=== PATIENT | female | born 1990 | race Caucasian/White ===

== ENCOUNTER 2021-06-28 12:24 | Inpatient (IN) | payer OTHER, SELFPAY ==
[2021-06-28] VITALS (9 sets, daily range): BP systolic 88–119; BP diastolic 45–75; PULSE 86–116; RESP 14–24; TEMP 36.6–38.7; O2SAT 95–100; BMI 21.9
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
[2021-06-28] MEDS: Ibuprofen 800 MG TABLET PO (13:32)
[2021-06-28 14:05] LABS: MANUAL DIFF FLAG NO
[2021-06-28 14:08] LABS: Basophils Percent Auto 0.3 % (0-2); Eosinophils Percent Auto 0.3 % (0-4); Hematocrit 31.4 % (37-47); Hemoglobin 10.2 g/dl (12.0-16.0); Imm Gran Abs Auto 0.04 X10*3/uL (0.00-0.03); Imm Gran Pct Auto 0.3 % (0.0-0.4); Lymphocytes Absolute Auto 1.5 X10*3/uL (1.2-4.9); Lymphocytes Percent Auto 12.4 % (20-40); Mean Corpuscular HGB Conc 32.5 g/dl (31.0-35.0); Mean Corpuscular Hemoglobin 23.3 pg (27.0-33.0); Mean Corpuscular Volume 71.9 fL (80-98); Mean Platelet Volume 9.3 fL (9.4-12.3); Neutrophils Absolute Auto 9.4 X10*3/uL (2.0-8.3); Neutrophils Percent Auto 78.7 % (45-73); Platelet Count 359 X10*3/uL (160-400); Red Blood Count 4.37 X10*6/uL (4.20-5.50); Red Cell Distribution Width 16.7 % (11.0-16.0); White Blood Count 11.9 X10*3/uL (4.8-10.8)
[2021-06-28 14:17] LABS: INTERNATIONAL NORM RATIO 1.2 (0.9-1.1); Prothrombin Time 13.9 SEC (9.9-13.0)
[2021-06-28 14:30] LABS: Lactic Acid 1.6 mmol/L (0.5-2.0)
[2021-06-28 14:33] LABS: Alanine Aminotransferase 56 U/L (0-31); Albumin Level 3.6 g/dL (3.5-5.0); Alkaline Phosphatase 153 U/L (39-117); Anion Gap 16 (12-20); Aspartate Amino Transferase 49 U/L (5-31); Bilirubin Total 0.5 mg/dL (0.0-1.0); Blood Urea Nitrogen 9 mg/dL (9-16); Calcium 8.9 mg/dL (8.4-10.2); Carbon Dioxide 21 mmol/L (22-29); Chloride 99 mmol/L (96-108); Creatinine Clr Calc Pharmacy 80.8; Estimated Glomerular Filt Rate > 60; Glucose Random 127 mg/dL (60-115); Magnesium 1.7 mg/dL (1.6-2.6); Potassium 3.7 mmol/L (3.3-5.1); Sodium 132 mmol/L (135-145)
[2021-06-28 14:38] LABS: B Type Natriuretic Peptide 63 pg/mL (<100)
[2021-06-28] MEDS: Piperacillin Sodium/Tazobactam 3.375 GM in 0.9 % Sodium Chloride 50 ML IV (15:12)
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
[2021-06-28 16:50] LABS: Glucose Urine UA NEG (NEG); Leukocyte Esterase Urine 1+ (NEG); Nitrite Urine NEG (NEG); Specific Gravity - Urine <= 1.005 (1.005-1.025); UACC Culture Trigger YES; Urine Blood NEG (NEG); Urine Ketones NEG (NEG); Urine Protein NEG (NEG-TRACE)
[2021-06-28 16:54] LABS: Color Urine STRAW
--- NOTE | 2021-06-28 16:54 | PC.NURSE ---
Difficulty in finding IV line at this time. MD at bedside with ultrasound
[2021-06-28 16:55] LABS: Appearance Urine CLEAR
[2021-06-28 16:57] LABS: UPreg QC Valid YES; Urine Pregnancy NEGATIVE (NEGATIVE)
[2021-06-28 17:14] LABS: Bacteria Urine 1+ /LPF; RBC Urine 0 /HPF (0); Renal Epithelial Cells Urine TRACE /LPF; Squamous Epithelial Cell Urine 1+ /LPF
[2021-06-28 17:15] LABS: Uric Acid Crystals Urine TRACE /LPF
--- NOTE | 2021-06-28 17:19 | PC.NURSE ---
Pt was stating that she wanted to leave AMA. Pt noticed tp have left room and was found again in waiting room. Unsure if she left the building. She agreed to go back to her room. At that time IV was placed via ultrasound by physician. IV abx given and pt is awaiting CT scan at this time.
[2021-06-28] MEDS: iohexoL 350 MG/ML 100 ML INFUS..BTL IV (18:20)
[2021-06-28] MEDS: vancomycin HCL 1,000 MG in 0.9 % Sodium Chloride 250 ML 270 MG IV (18:35)
--- NOTE | 2021-06-28 19:46 | PC.NURSE ---
Dr. Rapp to bedside, drained approx 120cc of sanguinous drainage from wound on left upper leg. surrounding swelling and erythema. dressing change and jerrod bandage applied by Dr. Rapp. Photo of wound taken with patients consent.
[2021-06-28 20:30] LABS: COVID-19 Test Negative (Negative)
[2021-06-28] MEDS: Acetaminophen 325 MG TABLET 650 MG PO (22:37)
[2021-06-28] MEDS: LORazepam 2 MG/ML VIAL 1 MG IVPUSH (22:37)
[2021-06-29] VITALS (14 sets, daily range): BP systolic 88–125; BP diastolic 42–70; PULSE 62–123; RESP 15–20; TEMP 36.1–38.7; O2SAT 96–100; BMI 22.8
--- NOTE | 2021-06-29 | ECG_ITS ---
Test Reason : METHADONE INITIATION Blood Pressure : / mmHG Vent. Rate : 101 BPM Atrial Rate : 101 BPM P-R Int : 116 ms QRS Dur : 078 ms QT Int : 356 ms P-R-T Axes : 026 067 027 degrees QTc Int : 461 ms Sinus tachycardia Otherwise normal ECG No previous ECGs available Referred By: La Nuñez Electronically Signed By:Keith Delgado
[2021-06-29] MEDS: Gabapentin 400 MG CAPSULE 800 MG PO ×4 (00:03→20:58)
[2021-06-29] MEDS: cefEPime HCl 1 GM in 0.9 % Sodium Chloride 50 ML IV ×3 (00:04→23:32)
[2021-06-29] MEDS: Heparin Sodium,Porcine 5,000 UNIT/ML VIAL 5000 UNIT SUBCUT ×2 (00:04→23:32)
[2021-06-29] MEDS: traZODone HCL 50 MG TABLET 150 MG PO ×2 (00:04→20:58)
[2021-06-29] MEDS: 0.9 % Sodium Chloride Flush 3 ML SYRINGE IVFLUSH ×4 (00:35→23:33)
[2021-06-29] MEDS: Morphine Sulfate 4 MG/ML CARTRIDGE IVPUSH ×4 (00:35→19:43)
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
[2021-06-29 05:38] LABS: MANUAL DIFF FLAG NO
[2021-06-29 05:44] LABS: Basophils Percent Auto 0.3 % (0-2); Eosinophils Percent Auto 0.2 % (0-4); Hematocrit 29.4 % (37-47); Hemoglobin 9.5 g/dl (12.0-16.0); Imm Gran Abs Auto 0.05 X10*3/uL (0.00-0.03); Imm Gran Pct Auto 0.4 % (0.0-0.4); Lymphocytes Absolute Auto 1.5 X10*3/uL (1.2-4.9); Lymphocytes Percent Auto 11.8 % (20-40); Mean Corpuscular HGB Conc 32.3 g/dl (31.0-35.0); Mean Corpuscular Hemoglobin 23.2 pg (27.0-33.0); Mean Corpuscular Volume 71.7 fL (80-98); Mean Platelet Volume 9.8 fL (9.4-12.3); Monocytes Absolute Auto 1.1 X10*3/uL (0.1-1.2); Monocytes Percent Auto 8.7 % (2-11); Neutrophils Absolute Auto 10.2 X10*3/uL (2.0-8.3); Neutrophils Percent Auto 78.6 % (45-73); Platelet Count 383 X10*3/uL (160-400); Red Cell Distribution Width 16.7 % (11.0-16.0); White Blood Count 12.9 X10*3/uL (4.8-10.8)
[2021-06-29 06:07] LABS: Anion Gap 14 (12-20); Blood Urea Nitrogen 7 mg/dL (9-16); Calcium 8.5 mg/dL (8.4-10.2); Carbon Dioxide 21 mmol/L (22-29); Chloride 102 mmol/L (96-108); Creatinine Clr Calc Pharmacy 81.9; Estimated Glomerular Filt Rate > 60; Glucose Random 122 mg/dL (60-115); Potassium 3.7 mmol/L (3.3-5.1); Sodium 133 mmol/L (135-145)
[2021-06-29] MEDS: vancomycin HCL 1,000 MG in 0.9 % Sodium Chloride 250 ML 270 MG IV ×2 (06:27→19:43)
[2021-06-29] MEDS: cloNIDine HCL 0.1 MG TABLET 0.05 MG PO (06:28)
--- NOTE | 2021-06-29 08:16 | PHA.MEDREC ---
Pharmacy Consult ? Medication Reconciliation Pharmacy has completed the medication reconciliation.
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
--- NOTE | 2021-06-29 08:51 | MHC.CM.PN ---
PATIENT NOT PARTICIPATING IN ASSESSMENT ATTEMPTS. STATES THAT SHE IS BURNING UP AND NEEDS WATER PER [employer]ITE [employer]ARD, PATIENT IS CURRENTLY NPO. CASE MANAGEMENT TO RETURN AT A MORE APPROPRIATE TIME.
[2021-06-29] MEDS: Nicotine 21 MG PATCH.TD24 TRANSDERMA (09:09)
[2021-06-29] MEDS: Amphetamine Mixed Salts 10 MG TABLET 30 MG PO ×3 (09:10→17:12)
[2021-06-29] MEDS: Escitalopram Oxalate 10 MG TABLET PO (09:10)
[2021-06-29] MEDS: hydrOXYzine HCL 25 MG TABLET PO (09:10)
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
--- NOTE | 2021-06-29 11:14 | HO.ANESPROP2 ---
HPI - Anesthesia Eval Consult details Narrative: 30 yo female patient for I&D of left knee PMFSH Active Problems Active Problems: All Active Problems (Updated 06/29/21 @ 08:48 by Lili Carpenter PA-C) Cellulitis of left thigh (Acute) UTI (urinary tract infection) (Acute) Sepsis (Acute) Infected wound (Acute) Traumatic seroma of left thigh (Acute) Past Medical History Medical History (Updated 06/29/21 @ 08:48 by Lili Carpenter PA-C) Hepatitis C IV drug abuse Tobacco use disorder Family History Family history of problems with anesthesia: No Surgical History History of Problems with Anesthesia: No Social History Social History Household Members: Significant Other Housing: House Do you presently have visiting nurse or other home services: No Patient Tobacco Use Status: Current everyday Tobacco user Tobacco use type: Cigarette Years Smoked: 5 Smoked in Last 30 Days: Yes Patient Interested in Nicotine Replacement: Yes Patient Given Instructions on How to Stop Smoking: No Second Hand Smoke Exposure: Yes Use of substances other than those prescribed or required for medical reasons: Yes Substance Use Type: Crack/Cocaine and Heroin Substance Use Frequency: Chronic Longstanding Last Used Substance: Hours (ago) Currently Displaying Signs/Symptoms of Drug Intoxication Withdrawal: No Any prior treatment program specific to substance use: Yes Have you been hit, kicked, punched, or otherwise hurt by someone within the past year? If so, by whom?: No Do you feel safe in your current relationship?: Yes Is there a partner from a previous relationship who is making you feel unsafe now?: No Are you made to feel afraid or neglected: No Are you DNR?: No Advance Directives: No Advance Directives Information Provided: No Advance Directives on File: No Do you have thoughts of harming others: None Do you have a plan to hurt others: No Plan Recently lost weight without trying: No Nutrition Risks: No Nutritional Risk Patient : No : No Poor oral hygiene: No service: No Current occupational status: unemployed Meds Allergies Allergy/AdvReac Type Severity Reaction Status Date / Time Penicillins [PENICILLINS] Allergy Intermediate UNKNOWN Verified 06/29/21 10:27 Sulfa (Sulfonamide Allergy Intermediate UNKNOWN Verified 06/29/21 10:27 Antibiotics) [SULFA (SULFONAMIDE ANTIBIOTICS)] Active Medications: Current Medications Generic Name Dose Route Start Last Admin Trade Name Jorgeq PRN Reason Stop Dose Admin Acetaminophen 650 mg 06/28/21 22:06 06/28/21 22:37 Acetaminophen 325 Mg Tablet PO 650 mg Q6H PRN Administration Pain, Mild (Pain Scale 1-3) Amphetamine/Dextroamphetamine 30 mg 06/29/21 08:00 06/29/21 09:10 Amphetamine Mixed Salts 10 Mg Tablet PO 30 mg TIDWM KYLIE Administration Clonidine HCl 0.05 mg 06/28/21 22:06 06/29/21 06:28 Clonidine Hcl 0.1 Mg Tablet PO 0.05 mg TID PRN Administration withdrawal symptoms Protocol Docusate Sodium 100 mg 06/28/21 22:06 Docusate Sodium 100 Mg Capsule PO DAILY PRN Constipation Escitalopram Oxalate 10 mg 06/29/21 09:00 06/29/21 09:10 Escitalopram Oxalate 10 Mg Tablet PO 10 mg DAILY KYLIE Administration Gabapentin 800 mg 06/28/21 22:06 06/29/21 09:10 Gabapentin 400 Mg Capsule PO 800 mg TID KYLIE Administration Heparin Sodium (Porcine) 5,000 unit 06/28/21 23:00 06/29/21 00:04 Heparin Sodium,Porcine 5,000 Unit/Ml Vial SUBCUT 5,000 unit Q12H KYLIE Administration Hydroxyzine HCl 25 mg 06/28/21 22:06 06/29/21 09:10 Hydroxyzine Hcl 25 Mg Tablet PO 25 mg Q6H PRN Administration anxiety Vancomycin HCl 1,000 mg/ 270 mls @ 270 mls/hr 06/29/21 07:00 06/29/21 08:19 Sodium Chloride IV Infused Q12H [facility] Infusion Cefepime HCl 1 gm/ Sodium 50 mls @ 100 mls/hr 06/29/21 00:00 06/29/21 10:33 Chloride IV Not Given Q8H KYLIE Lactated Ringer's 1,000 mls @ 100 mls/hr 06/29/21 11:15 Lr IVCONT .Q10H KYLIE Lorazepam 0.5 mg 06/29/21 09:00 Lorazepam 2 Mg/Ml Vial IVPUSH Q6H PRN Anxiety Morphine Sulfate 4 mg 06/28/21 23:45 06/29/21 06:28 Morphine Sulfate 4 Mg/Ml Cartridge IVPUSH 4 mg Q4H PRN Administration Pain, Severe (Pain Scale 7-10) Nicotine 21 mg 06/29/21 09:00 06/29/21 09:09 Nicotine 21 Mg Patch.Td24 TRANSDERMA 21 mg DAILY KYLIE Administration Ondansetron HCl 4 mg 06/28/21 22:06 Ondansetron Hcl 4 Mg/2 Ml Vial IVPUSH Q8H PRN Nausea and Vomiting Pharmacy Consult 1 each 06/28/21 22:06 Consult Rx Vancomycin Dosing MISCELLANE DAILY PRN Consult order Sodium Chloride 3 ml 06/29/21 00:00 06/29/21 09:10 0.9 % Sodium Chloride Flush 3 Ml Syringe IVFLUSH 3 ml QSHIFT KYLIE Administration Trazodone HCl 150 mg 06/28/21 22:06 06/29/21 00:04 Trazodone Hcl 50 Mg Tablet PO 150 mg BEDTIME KYLIE Administration Home Medications Medication Instructions Recorded Confirmed Last Taken Type dextroamphetamine-amphetamine 30 1 tab PO TID@08,12,15 06/28/21 06/29/21 06/24/21 History mg tablet escitalopram oxalate 10 mg tablet 1 tab PO DAILY 06/28/21 06/28/21 06/24/21 History gabapentin 800 mg tablet 1 tab PO TID 06/28/21 06/28/21 06/24/21 History trazodone 150 mg tablet 1 tab PO BEDTIME 06/28/21 06/28/21 06/24/21 History Exam Exam Date and Time: June 29, 2021 1114 Height,Weight and Vital Signs: Height 5 ft 2 in Weight 56.699 kg Last Vital Signs Temp 99.5 F 06/29/21 10:31 Pulse 123 H 06/29/21 10:31 Resp 16 06/29/21 10:31 BP 125/70 06/29/21 10:31 Pulse Ox 99 06/29/21 10:31 Pertinent Lab Results Pertinent Lab Results: Laboratory Tests 06/28/21 06/28/21 06/28/21 13:57 13:57 13:57 WBC 11.9 H RBC 4.37 Hgb 10.2 L Hct 31.4 L MCV 71.9 L MCH 23.3 L MCHC 32.5 RDW 16.7 H Plt Count 359 MPV 9.3 L Immature Gran % (Auto) 0.3 Neut % (Auto) 78.7 H Lymph % (Auto) 12.4 L Boundary % (Auto) 8.0 Eos % (Auto) 0.3 Baso % (Auto) 0.3 Lymph # (Auto) 1.5 Boundary # (Auto) 1.0 Eos # (Auto) 0.0 Baso # (Auto) 0.0 Abs Immat Gran (auto) 0.04 H Absolute Neuts (auto) 9.4 H Absolute Nucleated RBC 0.000 Nucleated RBC % (auto) 0.0 Hold Purple Top SEE NOTE PT 13.9 H INR 1.2 H Sodium Potassium Chloride Carbon Dioxide Anion Gap BUN Creatinine Estim Creat Clear Calc Estimated GFR Random Glucose Lactic Acid Calcium Magnesium Total Bilirubin AST ALT Alkaline Phosphatase B-Natriuretic Peptide Total Protein Albumin Urine Color Urine Appearance Urine pH Ur Specific [place] Urine Protein Urine Glucose (UA) Urine Ketones Urine Blood Urine Nitrite Ur Leukocyte Esterase Urine RBC Urine WBC Ur Squamous Epith Cells Ur Renal Epithelial Cell Uric Acid Crystals Urine Bacteria Urine Test COVID-19 (CAROL ANN) COVID-19 [employer] 06/28/21 06/28/21 06/28/21 13:57 13:57 13:57 WBC RBC Hgb Hct MCV MCH MCHC RDW Plt Count MPV Immature Gran % (Auto) Neut % (Auto) Lymph % (Auto) Boundary % (Auto) Eos % (Auto) Baso % (Auto) Lymph # (Auto) Boundary # (Auto) Eos # (Auto) Baso # (Auto) Abs Immat Gran (auto) Absolute Neuts (auto) Absolute Nucleated RBC Nucleated RBC % (auto) Hold Purple Top PT INR Sodium 132 L Potassium 3.7 Chloride 99 Carbon Dioxide 21 L Anion Gap 16 BUN 9 Creatinine 0.79 Estim Creat Clear Calc 80.8 Estimated GFR > 60 Random Glucose 127 H Lactic Acid 1.6 Calcium 8.9 Magnesium 1.7 Total Bilirubin 0.5 AST 49 H ALT 56 H Alkaline Phosphatase 153 H B-Natriuretic Peptide 63 Total Protein 7.0 Albumin 3.6 Urine Color Urine Appearance Urine pH Ur Specific [place] Urine Protein Urine Glucose (UA) Urine Ketones Urine Blood Urine Nitrite Ur Leukocyte Esterase Urine RBC Urine WBC Ur Squamous Epith Cells Ur Renal Epithelial Cell Uric Acid Crystals Urine Bacteria Urine Test COVID-19 (CAROL ANN) COVID-19 [employer] 06/28/21 06/28/21 06/28/21 16:38 16:38 20:02 WBC RBC Hgb Hct MCV MCH MCHC RDW Plt Count MPV Immature Gran % (Auto) Neut % (Auto) Lymph % (Auto) Boundary % (Auto) Eos % (Auto) Baso % (Auto) Lymph # (Auto) Boundary # (Auto) Eos # (Auto) Baso # (Auto) Abs Immat Gran (auto) Absolute Neuts (auto) Absolute Nucleated RBC Nucleated RBC % (auto) Hold Purple Top PT INR Sodium Potassium Chloride Carbon Dioxide Anion Gap BUN Creatinine Estim Creat Clear Calc Estimated GFR Random Glucose Lactic Acid Calcium Magnesium Total Bilirubin AST ALT Alkaline Phosphatase B-Natriuretic Peptide Total Protein Albumin Urine Color STRAW Urine Appearance CLEAR Urine pH 6.0 Ur Specific [place] <= 1.005 Urine Protein NEG Urine Glucose (UA) NEG Urine Ketones NEG Urine Blood NEG Urine Nitrite NEG Ur Leukocyte Esterase 1+ H Urine RBC 0 Urine WBC 10-14 H Ur Squamous Epith Cells 1+ Ur Renal Epithelial Cell TRACE Uric Acid Crystals TRACE Urine Bacteria 1+ Urine Test NEGATIVE COVID-19 (CAROL ANN) Negative COVID-19 Clin Com See Note 06/29/21 06/29/21 05:33 05:33 WBC 12.9 H RBC 4.10 L Hgb 9.5 L Hct 29.4 L MCV 71.7 L MCH 23.2 L MCHC 32.3 RDW 16.7 H Plt Count 383 MPV 9.8 Immature Gran % (Auto) 0.4 Neut % (Auto) 78.6 H Lymph % (Auto) 11.8 L Boundary % (Auto) 8.7 Eos % (Auto) 0.2 Baso % (Auto) 0.3 Lymph # (Auto) 1.5 Boundary # (Auto) 1.1 Eos # (Auto) 0.0 Baso # (Auto) 0.0 Abs Immat Gran (auto) 0.05 H Absolute Neuts (auto) 10.2 H Absolute Nucleated RBC 0.000 Nucleated RBC % (auto) 0.0 Hold Purple Top PT INR Sodium 133 L Potassium 3.7 Chloride 102 Carbon Dioxide 21 L Anion Gap 14 BUN 7 L Creatinine 0.78 Estim Creat Clear Calc 81.9 Estimated GFR > 60 Random Glucose 122 H Lactic Acid Calcium 8.5 Magnesium Total Bilirubin AST ALT Alkaline Phosphatase B-Natriuretic Peptide Total Protein Albumin Urine Color Urine Appearance Urine pH Ur Specific [place] Urine Protein Urine Glucose (UA) Urine Ketones Urine Blood Urine Nitrite Ur Leukocyte Esterase Urine RBC Urine WBC Ur Squamous Epith Cells Ur Renal Epithelial Cell Uric Acid Crystals Urine Bacteria Urine Test COVID-19 (CAROL ANN) COVID-19 Clin Com Airway Mallampati Class: II TM Dist: >3cm Neck ROM: Full Loose/Missing/Broken Teeth: Yes (Broken back) Heart: RRR Lungs: CTAB Assessment and Plan Assessment Anesthesia Assessment: Anesthesia Plan Discussed and Chart Reviewed Final Anesthetic Review Family History of Problems with Anesthesia: No History of Problems with Anesthesia: No NPO: No (5 hours ago 16oz cranberry juice) ASA Class: III Final Preanesthetic Review: No Changes in Pt Med Stat, Meds/Allgs Chart Reviewed, Consent Obtained/Reviewed and Anes Risks/Benef Reviewed Patient Risk: Intermediate Procedure Risk: Low Assessment/Block/Sedation in SS: Assess/Block/Sedation-SS Anesthetic Plan Anesthetic Plan: GA Disposition: Standard PACU and Inp. Admit - Standard Bed
--- NOTE | 2021-06-29 11:31 | MHC.SHP ---
Pre-Procedural Eval Section A Date of Service: 06/29/21 The patient is an INPATIENT: Yes Section B Chief Complaint: cellulitis, seroma Allergies: Allergies Allergy/AdvReac Type Severity Reaction Status Date / Time Penicillins [PENICILLINS] Allergy Intermediate UNKNOWN Verified 06/29/21 10:27 Sulfa (Sulfonamide Allergy Intermediate UNKNOWN Verified 06/29/21 10:27 Antibiotics) [SULFA (SULFONAMIDE ANTIBIOTICS)] Plan Diagnosis/Plan: Unchanged I have reviewed the history and physical and performed a pertinent physical examination on my patient. No changes have occurred unless specified.
--- NOTE | 2021-06-29 11:49 | MHC.CM.PN ---
PATIENT SCHEDULED FOR DRAIN TO DAY IN O.R.
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
[2021-06-29] MEDS: Lactated Ringers 1,000 ML 100 ML IVCONT ×2 (12:01→17:13)
--- NOTE | 2021-06-29 12:01 | PC.NURSE ---
Nicotine Patch removed from left upper arm in pre op room, per anesthesia.
--- NOTE | 2021-06-29 12:03 | PC.NURSE ---
Dr. Tellez aware that patient drank two 8oz cups of cranberry juice at 0700. Okay to proceed with surgery.
--- NOTE | 2021-06-29 12:04 | PC.NURSE ---
Per Dr. Pagan, no pre op antibiotics.
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
[2021-06-29] MEDS: LORazepam 2 MG/ML VIAL 0.5 MG IVPUSH ×2 (13:23→19:42)
--- NOTE | 2021-06-29 15:47 | PC.NURSE ---
Skin assessment completed today. On admission patient had some slight redness to her left inner thigh from cellulitis. Today I see no redness and skin looks great. No other skin issues noted.
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
--- NOTE | 2021-06-29 17:41 | PC.NURSE ---
pt reported increased drainage from L thigh wound. Dsg placed in surgery today fully saturated w/ serosaing drainage. pt denied increase in pain. no increase in swelling or erythema noted. took down saturated dsg. cleansed site. periwound pink and intact, wound with [address] absorbent gauze dsg applied with abd pain covering and guaze wrap covering. pt advised to report increase drainage, any s/sx of increased pain/ swelling. will cont to monitor and assess.
[2021-06-30] VITALS (7 sets, daily range): BP systolic 96–135; BP diastolic 58–75; PULSE 70–98; RESP 16–20; TEMP 36.2–37; O2SAT 96–99
[2021-06-30] MEDS: Lactated Ringers 1,000 ML 100 ML IVCONT ×2 (05:52→18:18)
[2021-06-30] MEDS: vancomycin HCL 1,000 MG in 0.9 % Sodium Chloride 250 ML 270 MG IV (05:53)
[2021-06-30] MEDS: Morphine Sulfate 4 MG/ML CARTRIDGE IVPUSH ×2 (06:00→12:22)
[2021-06-30 06:36] LABS: Vancomycin Trough 5.3 mcg/mL (10.0-20.0)
[2021-06-30] MEDS: cefTRIAXone sodium 1 GM in 0.9 % Sodium Chloride 50 ML IV (07:51)
[2021-06-30] MEDS: Amphetamine Mixed Salts 10 MG TABLET 30 MG PO ×3 (07:53→17:05)
[2021-06-30] MEDS: Gabapentin 400 MG CAPSULE 800 MG PO ×3 (07:54→20:56)
[2021-06-30] MEDS: Nicotine 21 MG PATCH.TD24 TRANSDERMA (07:54)
[2021-06-30] MEDS: Escitalopram Oxalate 10 MG TABLET PO (07:54)
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
[2021-06-30] MEDS: LORazepam 2 MG/ML VIAL 0.5 MG IVPUSH (09:07)
[2021-06-30] MEDS: Nicotine Polacrilex 2 MG GUM BUCCAL ×4 (09:07→15:34)
[2021-06-30] MEDS: Acetaminophen 325 MG TABLET 650 MG PO ×2 (10:39→22:07)
[2021-06-30] MEDS: Ibuprofen 600 MG TABLET PO ×2 (10:40→22:07)
--- NOTE | 2021-06-30 10:45 | HO.PM.IMPN ---
Subjective Subjective Date of Service: 06/30/21 Interval History: F/u on open wound of left upper thigh, opioid withdrawal Review of Systems Gen: no fever Resp: no sob, no cough CV: no chest, no QUIJANO, no leg edema GI: No n/v, no abd pain Neuro: No confusion, anxious, Physical Exam Vital Signs: Vital Signs: Last Vital Signs Temp 98.1 F 06/30/21 07:35 Pulse 70 06/30/21 07:35 Resp 18 06/30/21 07:35 BP 96/58 L 06/30/21 07:35 Pulse Ox 98 06/30/21 07:35 Body Mass Index 22.8 Const: General: comfortable Orientation/consciousness: patient oriented x3 Resp: Effort & Inspection: normal respiratory effort and able to speak in complete sentences Auscultation: clear to auscultation bilaterally Cardio: Rate: regular rate Rhythm: regular rhythm Heart sounds: no murmurs GI: Palpation (GI): nontender Neuro: General: patient oriented x3 Extrem: Other: LLE- wound of medial thigh remains clean- no further necrosis noted, some fibrinous exudate, granulation tissue of distal aspect, sury drain remains in subq space, serous drainage noted on dressing, surrounding erythema improved, induration persists, no fluid collection noted General: Yes no pedal edema Objective Data Current Medications Generic Name Dose Route Start Last Admin Trade Name Jorgeq PRN Reason Stop Dose Admin Acetaminophen 650 mg 06/28/21 22:06 06/30/21 10:39 Acetaminophen 325 Mg Tablet PO 650 mg Q6H PRN Administration Pain, Mild (Pain Scale 1-3) Amphetamine/Dextroamphetamine 30 mg 06/29/21 08:00 06/30/21 07:53 Amphetamine Mixed Salts 10 Mg Tablet PO 30 mg TIDWM KYLIE Administration Clonidine HCl 0.05 mg 06/28/21 22:06 06/29/21 06:28 Clonidine Hcl 0.1 Mg Tablet PO 0.05 mg TID PRN Administration withdrawal symptoms Protocol Docusate Sodium 100 mg 06/28/21 22:06 Docusate Sodium 100 Mg Capsule PO DAILY PRN Constipation Escitalopram Oxalate 10 mg 06/29/21 09:00 06/30/21 07:54 Escitalopram Oxalate 10 Mg Tablet PO 10 mg DAILY KYLIE Administration Fentanyl 25 mcg 06/29/21 12:00 Fentanyl Citrate/Pf 100 Mcg/2 Ml Vial IVPUSH Q5M PRN Pain, Moderate (Pain Scale 4-6 Fentanyl 50 mcg 06/29/21 12:00 Fentanyl Citrate/Pf 100 Mcg/2 Ml Vial IVPUSH Q5M PRN Pain, Severe (Pain Scale 7-10) Gabapentin 800 mg 06/28/21 22:06 06/30/21 07:54 Gabapentin 400 Mg Capsule PO 800 mg TID KYLIE Administration Heparin Sodium (Porcine) 5,000 unit 06/28/21 23:00 06/29/21 23:32 Heparin Sodium,Porcine 5,000 Unit/Ml Vial SUBCUT 5,000 unit Q12H KYLIE Administration Hydroxyzine HCl 25 mg 06/28/21 22:06 06/29/21 09:10 Hydroxyzine Hcl 25 Mg Tablet PO 25 mg Q6H PRN Administration anxiety Lactated Ringer's 1,000 mls @ 100 mls/hr 06/29/21 11:30 06/30/21 05:52 Lr IVCONT 100 mls/hr .Q10H KYLIE Administration Ceftriaxone Sodium 1 gm/ 50 mls @ 100 mls/hr 06/30/21 08:00 06/30/21 08:28 Sodium Chloride IV Infused Q24H KYLIE Infusion Ibuprofen 600 mg 06/30/21 10:04 06/30/21 10:40 Ibuprofen 600 Mg Tablet PO 600 mg Q8H PRN Administration Menstrual cramps Lorazepam 0.5 mg 06/29/21 09:00 06/30/21 09:07 Lorazepam 2 Mg/Ml Vial IVPUSH 0.5 mg Q6H PRN Administration Anxiety Methadone HCl 30 mg 06/29/21 15:00 06/30/21 07:54 Methadone Hcl 1 Mg/0.1 Ml Oral.Conc PO 30 mg DAILY KYLIE Administration Morphine Sulfate 4 mg 06/28/21 23:45 06/30/21 06:00 Morphine Sulfate 4 Mg/Ml Cartridge IVPUSH 4 mg Q4H PRN Administration Pain, Severe (Pain Scale 7-10) Nicotine Polacrilex 2 mg 06/30/21 08:55 06/30/21 10:40 Nicotine Polacrilex 2 Mg Gum BUCCAL 2 mg Q2H PRN Administration craving Ondansetron HCl 4 mg 06/28/21 22:06 Ondansetron Hcl 4 Mg/2 Ml Vial IVPUSH Q8H PRN Nausea and Vomiting Ondansetron HCl 4 mg 06/29/21 12:00 Ondansetron Hcl 4 Mg/2 Ml Vial IVPUSH ONCE PRN Nausea and Vomiting Oxycodone HCl 5 mg 06/29/21 12:00 Oxycodone Hcl Immed Release 5 Mg Tablet PO ONCE PRN Pain, Moderate (Pain Scale 4-6 Oxycodone HCl 10 mg 06/29/21 12:00 Oxycodone Hcl Immed Release 5 Mg Tablet PO ONCE PRN Pain, Severe (Pain Scale 7-10) Pharmacy Consult 1 each 06/28/21 22:06 Consult Rx Vancomycin Dosing MISCELLANE DAILY PRN Consult order Sodium Chloride 3 ml 06/29/21 00:00 06/30/21 07:17 0.9 % Sodium Chloride Flush 3 Ml Syringe IVFLUSH Not Given QSHIFT KYLIE Trazodone HCl 150 mg 06/28/21 22:06 06/29/21 20:58 Trazodone Hcl 50 Mg Tablet PO 150 mg BEDTIME KYLIE Administration Labs CBC & Chem 7: 06/29/21 05:33 06/29/21 05:33 Labs: Laboratory Results - last 24 hr 06/30/21 05:53 Vancomycin Trough 5.3 L Microbiology Microbiology Results: Microbiology 06/28/21 15:21 Gram Stain - Final Thigh Left Routine Culture - Final Group g streptococcus 06/28/21 20:02 Urine Culture - Final Urine clean catch - Urine collado top Escherichia coli 06/28/21 13:57 Blood Culture - Preliminary Blood - Venous No growth after 24 hours. 06/28/21 13:57 Blood Culture - Preliminary Blood - Venous No growth after 24 hours. Assessment and Plan (1) Cellulitis of left thigh: Status: Acute (2) UTI (urinary tract infection): Status: Acute (3) Opioid use disorder, severe, dependence: Status: Acute Assessment and Plan: 30-year-old female with past medical history of IV drug use who presents to the hospital complaining of left knee pain and swelling. Found to have seroma # sepsis - secondary to cellulitis/infected wound/post traumatic seroma of left tigh - She is s/p incision and drainage of left thigh seroma and debridement of necrotic skin by Dr. Frankel on 06/29, wound clean, culture group G strep -Change Cefepime and Vanco to Ceftriaxone # UTI--E.coli, Ceftriaoxne # Opioid dependence -Addiction consult -Ativan, Clonidine and Atrax PRN -Methadone for 3 days # tobacco use disorder - smokes 1 pack per day -NRT given # hep C - untreated - has some transaminitis - reports that she is aware that she can be treated for hep C but this time she is not interested DVT prophylaxis: heparin sub out of bed and ambulate DC tomorrow, at least one more day of IV Abx Quality Stroke Does the patient have a stroke diagnosis?: No VTE Prior VTE?: No VTE Risk Level:: Medical - moderate - high VTE Device Contraindication: Treatment Not Indicated VTE Drug Contraindication: N/A - Med Ordered
--- NOTE | 2021-06-30 11:29 | HO.POSTANES ---
Post Anesthesia Evaluation Post Anesthesia Evaluation Vital Signs: Vital Signs Temp Pulse Resp BP Pulse Ox 06/30/21 07:35 98.1 F 70 18 96/58 L 98 06/30/21 03:23 16 Anesthesia: General Mental Status: Awake Pain Control: Satisfactory Nausea/Vomiting: None Hydration: Adequate Anesthesia-Related Issues: No Anes. Related Issues
--- NOTE | 2021-06-30 11:46 | MHC.CM.PN ---
PER HOSPITALIST ROUNDS, PLAN IS A FEW MORE DAYS OF IV ABX AND THEN PLAN FOR DISCHARGE. CASE MANAGEMENT CONTINUING TO FOLLOW
[2021-06-30] MEDS: hydrOXYzine HCL 25 MG TABLET PO (15:34)
--- NOTE | 2021-06-30 16:02 | P.PNADD_ITS ---
Subjective Subjective Date of Service: 06/30/21 Reason For Visit: cellulitis, seroma Interim History: Patient seen in follow up following methadone start yesterday, 06/29. patient reports she is tolerating 30mg methadone, would like to increase dose some given restlessness and anxiety. Lengthy discussion with patient regarding immediate goals with treatment. Patient states she is considering admission to treatment facility due to current living situation. Reports previous stable methadone dose of 75mg Discussed cocaine cravings and expected sx of recent discontinuation of cocaine use. 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 Review of Systems Review of Systems denies nausea, vomiting, loose stools reports anxiety, restlessness, generalized body aches Mental Status Exam Mental Status Exam Patient Appearance: Well Grooomed and Appropriate Patient Orientation: Person, Place, Time and Situation Patient Behavior: Appropriate Mood Description: Appropriate and Sad Affect Description: Sad Speech Pattern: Clear Thought Process: Goal Oriented Thought Content: positive for Circumstantial Judgement: Fair Diagnostics Vital Signs (24Hr): Vital Signs - 24 hr 06/29/21 19:50 06/29/21 22:56 06/30/21 03:23 Temperature 98 F 98 F Pulse Rate 102 H 106 H Respiratory Rate 18 18 16 Blood Pressure 95/66 105/67 Pulse Oximetry 96 97 06/30/21 07:35 06/30/21 11:31 06/30/21 15:11 Temperature 98.1 F 98.1 F 98.6 F Pulse Rate 70 74 97 Respiratory Rate 18 18 20 Blood Pressure 96/58 L 107/64 102/65 Pulse Oximetry 98 96 98 Body Mass Index 22.8 Labs Results: 06/29/21 05:33 06/29/21 05:33 Labs: Laboratory Results - last 48 hr 06/28/21 06/28/21 06/28/21 16:38 16:38 20:02 WBC RBC Hgb Hct MCV MCH MCHC RDW Plt Count MPV Immature Gran % (Auto) Neut % (Auto) Lymph % (Auto) Sac % (Auto) Eos % (Auto) Baso % (Auto) Lymph # (Auto) Sac # (Auto) Eos # (Auto) Baso # (Auto) Abs Immat Gran (auto) Absolute Neuts (auto) Absolute Nucleated RBC Nucleated RBC % (auto) Sodium Potassium Chloride Carbon Dioxide Anion Gap BUN Creatinine Estim Creat Clear Calc Estimated GFR Random Glucose Calcium Urine Color STRAW Urine Appearance CLEAR Urine pH 6.0 Ur Specific [place] <= 1.005 Urine Protein NEG Urine Glucose (UA) NEG Urine Ketones NEG Urine Blood NEG Urine Nitrite NEG Ur Leukocyte Esterase 1+ H Urine RBC 0 Urine WBC 10-14 H Ur Squamous Epith Cells 1+ Ur Renal Epithelial Cell TRACE Uric Acid Crystals TRACE Urine Bacteria 1+ Urine Test NEGATIVE Vancomycin Trough COVID-19 ([facility]) Negative COVID-19 Clin Com See Note 06/29/21 06/29/21 06/30/21 05:33 05:33 05:53 WBC 12.9 H RBC 4.10 L Hgb 9.5 L Hct 29.4 L MCV 71.7 L MCH 23.2 L MCHC 32.3 RDW 16.7 H Plt Count 383 MPV 9.8 Immature Gran % (Auto) 0.4 Neut % (Auto) 78.6 H Lymph % (Auto) 11.8 L Sac % (Auto) 8.7 Eos % (Auto) 0.2 Baso % (Auto) 0.3 Lymph # (Auto) 1.5 Sac # (Auto) 1.1 Eos # (Auto) 0.0 Baso # (Auto) 0.0 Abs Immat Gran (auto) 0.05 H Absolute Neuts (auto) 10.2 H Absolute Nucleated RBC 0.000 Nucleated RBC % (auto) 0.0 Sodium 133 L Potassium 3.7 Chloride 102 Carbon Dioxide 21 L Anion Gap 14 BUN 7 L Creatinine 0.78 Estim Creat Clear Calc 81.9 Estimated GFR > 60 Random Glucose 122 H Calcium 8.5 Urine Color Urine Appearance Urine pH Ur Specific [place] Urine Protein Urine Glucose (UA) Urine Ketones Urine Blood Urine Nitrite Ur Leukocyte Esterase Urine RBC Urine WBC Ur Squamous Epith Cells Ur Renal Epithelial Cell Uric Acid Crystals Urine Bacteria Urine Test Vancomycin Trough 5.3 L COVID-19 ([facility]) COVID-19 Clin Com Imaging Radiology Impressions: ITS Impressions Femur CT 06/28/21 17:05 IMPRESSION: Large collection in the medial subcutaneous fat of the left distal thigh and knee with a thin rim of enhancement. The collection is very superficial at the site of the skin defect in the medial soft tissues. This is most consistent with a posttraumatic seroma or hematoma, though superimposed infection is also possible given the peripheral enhancement. Based on mechanism of injury, continued follow-up is advised as this may correspond to a closed degloving injury (Devan iPnaee lesion) that may not resolve spontaneously. Medications Medications Current Medications Generic Name Dose Route Start Last Admin Trade Name Freq PRN Reason Stop Dose Admin Acetaminophen 650 mg 06/28/21 22:06 06/30/21 10:39 Acetaminophen 325 Mg Tablet PO 650 mg Q6H PRN Administration Pain, Mild (Pain Scale 1-3) Amphetamine/Dextroamphetamine 30 mg 06/29/21 08:00 06/30/21 12:22 Amphetamine Mixed Salts 10 Mg Tablet PO 30 mg TIDWM KYLIE Administration Clonidine HCl 0.05 mg 06/28/21 22:06 06/29/21 06:28 Clonidine Hcl 0.1 Mg Tablet PO 0.05 mg TID PRN Administration withdrawal symptoms Protocol Docusate Sodium 100 mg 06/28/21 22:06 Docusate Sodium 100 Mg Capsule PO DAILY PRN Constipation Escitalopram Oxalate 10 mg 06/29/21 09:00 06/30/21 07:54 Escitalopram Oxalate 10 Mg Tablet PO 10 mg DAILY KYLIE Administration Fentanyl 25 mcg 06/29/21 12:00 Fentanyl Citrate/Pf 100 Mcg/2 Ml Vial IVPUSH Q5M PRN Pain, Moderate (Pain Scale 4-6 Fentanyl 50 mcg 06/29/21 12:00 Fentanyl Citrate/Pf 100 Mcg/2 Ml Vial IVPUSH Q5M PRN Pain, Severe (Pain Scale 7-10) Gabapentin 800 mg 06/28/21 22:06 06/30/21 15:26 Gabapentin 400 Mg Capsule PO 800 mg TID KYLIE Administration Heparin Sodium (Porcine) 5,000 unit 06/28/21 23:00 06/30/21 12:09 Heparin Sodium,Porcine 5,000 Unit/Ml Vial SUBCUT Not Given Q12H KYLIE Hydroxyzine HCl 25 mg 06/28/21 22:06 06/30/21 15:34 Hydroxyzine Hcl 25 Mg Tablet PO 25 mg Q6H PRN Administration anxiety Lactated Ringer's 1,000 mls @ 100 mls/hr 06/29/21 11:30 06/30/21 15:57 Lr IVCONT Infused .Q10H KYLIE Infusion Ceftriaxone Sodium 1 gm/ 50 mls @ 100 mls/hr 06/30/21 08:00 06/30/21 08:28 Sodium Chloride IV Infused Q24H KYLIE Infusion Ibuprofen 600 mg 06/30/21 10:04 06/30/21 10:40 Ibuprofen 600 Mg Tablet PO 600 mg Q8H PRN Administration Menstrual cramps Lorazepam 0.5 mg 06/30/21 12:44 Lorazepam 0.5 Mg Tablet PO BID PRN Anxiety Methadone HCl 35 mg 07/01/21 09:00 Methadone Hcl 1 Mg/0.1 Ml Oral.Conc PO DAILY KYLIE Morphine Sulfate 4 mg 06/28/21 23:45 06/30/21 12:22 Morphine Sulfate 4 Mg/Ml Cartridge IVPUSH 4 mg Q4H PRN Administration Pain, Severe (Pain Scale 7-10) Nicotine Polacrilex 2 mg 06/30/21 08:55 06/30/21 15:34 Nicotine Polacrilex 2 Mg Gum BUCCAL 2 mg Q2H PRN Administration craving Ondansetron HCl 4 mg 06/28/21 22:06 Ondansetron Hcl 4 Mg/2 Ml Vial IVPUSH Q8H PRN Nausea and Vomiting Ondansetron HCl 4 mg 06/29/21 12:00 Ondansetron Hcl 4 Mg/2 Ml Vial IVPUSH ONCE PRN Nausea and Vomiting Oxycodone HCl 5 mg 06/29/21 12:00 Oxycodone Hcl Immed Release 5 Mg Tablet PO ONCE PRN Pain, Moderate (Pain Scale 4-6 Oxycodone HCl 10 mg 06/29/21 12:00 Oxycodone Hcl Immed Release 5 Mg Tablet PO ONCE PRN Pain, Severe (Pain Scale 7-10) Pharmacy Consult 1 each 06/28/21 22:06 Consult Rx Vancomycin Dosing MISCELLANE DAILY PRN Consult order Sodium Chloride 3 ml 06/29/21 00:00 06/30/21 15:16 0.9 % Sodium Chloride Flush 3 Ml Syringe IVFLUSH Not Given QSHIFT [facility] Trazodone HCl 150 mg 06/28/21 22:06 06/29/21 20:58 Trazodone Hcl 50 Mg Tablet PO 150 mg BEDTIME [facility] Administration Allergies Allergies Allergy/AdvReac Type Severity Reaction Status Date / Time Penicillins [PENICILLINS] Allergy Intermediate UNKNOWN Verified 06/29/21 10:27 Sulfa (Sulfonamide Allergy Intermediate UNKNOWN Verified 06/29/21 10:27 Antibiotics) [SULFA (SULFONAMIDE ANTIBIOTICS)] Assessment & Plan Assessment & Plan (1) Opioid use disorder, severe, dependence: Status: Acute Code(s): F11.20 - Opioid dependence, uncomplicated Assessment and Plan: * methadone increase to 35mg QD * lorazepam changed to PO and decreased frequency of dosing --can d/c tmrw * [facility] St[employer] to follow up with patient to discuss additional treatment options following discharge (2) Cocaine use disorder, severe, dependence: Status: Acute Code(s): F14.20 - Cocaine dependence, uncomplicated 20 mins with patient and coordinating care Greater than 50% of the session was spent on counseling and/or coordination of care
--- NOTE | 2021-06-30 18:11 | MHC.RECOVSUP ---
? Reason for consult Recovery Support o Current location: 352 o Identified substance use concern: Heroin - Support ? Intervention: o Community resources provided o Harm reduction discussion ? Plan: o Patient to follow up with [facility] after discharge ? Additional information:Met with patient and talked about Recovery and harm reduction.. (Patient boy friend was present) Patient stated that [place] is a big trigger for her.. I was able to give information for [facility] in [place] where they could be with people in recovery..
[2021-06-30] MEDS: LORazepam 0.5 MG TABLET PO (18:24)
[2021-06-30] MEDS: traZODone HCL 50 MG TABLET 150 MG PO (20:56)
[2021-07-01 03:59] VITALS: BP 94/53; PULSE 66; RESP 16; TEMP 36.1; O2SAT 99
[2021-07-01] MEDS: Lactated Ringers 1,000 ML 100 ML IVCONT (04:57)
[2021-07-01 08:00] VITALS: BP 97/60; PULSE 73; RESP 18; TEMP 36.1; O2SAT 100
[2021-07-01] MEDS: cefTRIAXone sodium 1 GM in 0.9 % Sodium Chloride 50 ML IV (08:40)
[2021-07-01] MEDS: Gabapentin 400 MG CAPSULE 800 MG PO (08:41)
[2021-07-01] MEDS: Escitalopram Oxalate 10 MG TABLET PO (08:41)
[2021-07-01] MEDS: Morphine Sulfate 4 MG/ML CARTRIDGE IVPUSH (09:12)
[2021-07-01] MEDS: Amphetamine Mixed Salts 10 MG TABLET 30 MG PO ×2 (09:13→11:26)
[2021-07-01] MEDS: LORazepam 0.5 MG TABLET PO (09:13)
[2021-07-01] MEDS: 0.9 % Sodium Chloride Flush 3 ML SYRINGE IVFLUSH (09:13)
--- NOTE | 2021-07-01 10:24 | PM.PNGS ---
Subjective Subjective Date of Service: 07/01/21 <Lili Carpenter PA-C - Last Filed: 07/01/21 10:30> 07/01/21 <Topher Pagan MD - Last Filed: 07/01/21 10:53> Interval history: Feels much better. Dressing changed twice yesterday. Helped change the dressing this morning herself. On methadone. <Lili Carpenter PA-C - Last Filed: 07/01/21 10:30> Physical Exam Vital Signs: Vital Signs: Last Vital Signs Temp 96.9 F 07/01/21 08:00 Pulse 73 07/01/21 08:00 Resp 18 07/01/21 08:00 BP 97/60 07/01/21 08:00 Pulse Ox 100 07/01/21 08:00 Body Mass Index 22.8 <NILESH Scott Last Filed: 07/01/21 10:30> Const: General: comfortable, no acute distress and alert <Lili Carpenter PA-C - Last Filed: 07/01/21 10:30> Orientation/consciousness: patient oriented x3 <Lili Carpenter PA-C - Last Filed: 07/01/21 10:30> Resp: Effort & Inspection: normal respiratory effort <NILESH Scott Last Filed: 07/01/21 10:30> Skin: General skin exam: no rashes or lesions noted <Lili Carpenter PA-C - Last Filed: 07/01/21 10:30> Neuro: General: patient oriented x3 <Lili Carpenter PA-C - Last Filed: 07/01/21 10:30> Extrem: Other: left upper thigh wound- remains open and cavity slowly closing, wound base clean with granulation tissue, no further necrotic tissue noted, maco drain removed, erythema and induration improved <NILESH Scott Last Filed: 07/01/21 10:30> General: Yes normal exam except as noted <NILESH Scott Last Filed: 07/01/21 10:30> Procedures Date of Service Date of Service: 07/01/21 <NILESH Scott Last Filed: 07/01/21 10:30> Progress Note: A&P Assessment and plan (1) Opioid use disorder, severe, dependence: Status: Acute <Lili Carpenter PA-C - Last Filed: 07/01/21 10:30> (2) Cellulitis of left thigh: Status: Acute <Lili Carpenter PA-C - Last Filed: 07/01/21 10:30> (3) Traumatic seroma of left thigh: Status: Acute <Lili Carpenter PA-C - Last Filed: 07/01/21 10:30> Assessment and Plan: s/p I&D and debridement of wound. Wound clinically improved, seroma cavity remains open and draining. Maco drain removed. Cultures grew Group g streptococcus. Appears stable for discharge to home on course of PO antibiotics with VNA services. Continue daily dressing changes with fluffs, abdominal dressing, kerlix and jerrod wrap while having significant drainage. Can f/u in office in [address] Pagan. <Lili Carpenter PA-C - Last Filed: 07/01/21 10:30> s/p I&D and debridement of wound. Wound clinically improved, seroma cavity remains open and draining. Maco drain removed. Cultures grew Group g streptococcus. Appears stable for discharge to home on course of PO antibiotics with VNA services. Continue daily dressing changes with fluffs, abdominal dressing, kerlix and jerrod wrap while having significant drainage. Can f/u in office in [address] Pagan. Agree with the above assessment and plan. Patient is much improved with decreased cellulitis. Patient will need continue daily wound care and antibiotics. Will follow up in office in 1-2 weeks for wound check. Clear for discharge from my standpoint. <Topher Pagan MD - Last Filed: 07/01/21 10:53> Fall Risk Details Current Medications: Current Medications Generic Name Dose Route Start Last Admin Trade Name Freq PRN Reason Stop Dose Admin Acetaminophen 650 mg 06/28/21 22:06 06/30/21 22:07 Acetaminophen 325 Mg Tablet PO 650 mg Q6H PRN Administration Pain, Mild (Pain Scale 1-3) Amphetamine/Dextroamphetamine 30 mg 06/29/21 08:00 08/04/21 09:13 Amphetamine Mixed Salts 10 Mg Tablet PO 30 mg TIDWM KYLIE Administration Clonidine HCl 0.05 mg 06/28/21 22:06 06/29/21 06:28 Clonidine Hcl 0.1 Mg Tablet PO 0.05 mg TID PRN Administration withdrawal symptoms Protocol Docusate Sodium 100 mg 06/28/21 22:06 Docusate Sodium 100 Mg Capsule PO DAILY PRN Constipation Escitalopram Oxalate 10 mg 06/29/21 09:00 07/01/21 08:41 Escitalopram Oxalate 10 Mg Tablet PO 10 mg DAILY KYLIE Administration Fentanyl 25 mcg 06/29/21 12:00 Fentanyl Citrate/Pf 100 Mcg/2 Ml Vial IVPUSH Q5M PRN Pain, Moderate (Pain Scale 4-6 Fentanyl 50 mcg 06/29/21 12:00 Fentanyl Citrate/Pf 100 Mcg/2 Ml Vial IVPUSH Q5M PRN Pain, Severe (Pain Scale 7-10) Gabapentin 800 mg 06/28/21 22:06 07/01/21 08:41 Gabapentin 400 Mg Capsule PO 800 mg TID KYLIE Administration Heparin Sodium (Porcine) 5,000 unit 06/28/21 23:00 07/01/21 00:30 Heparin Sodium,Porcine 5,000 Unit/Ml Vial SUBCUT Not Given Q12H KYLIE Hydroxyzine HCl 25 mg 06/28/21 22:06 06/30/21 15:34 Hydroxyzine Hcl 25 Mg Tablet PO 25 mg Q6H PRN Administration anxiety Ceftriaxone Sodium 1 gm/ 50 mls @ 100 mls/hr 06/30/21 08:00 07/01/21 08:40 Sodium Chloride IV 100 mls/hr Q24H KYLIE Administration Ibuprofen 600 mg 06/30/21 10:04 06/30/21 22:07 Ibuprofen 600 Mg Tablet PO 600 mg Q8H PRN Administration Menstrual cramps Lorazepam 0.5 mg 06/30/21 12:44 07/01/21 09:13 Lorazepam 0.5 Mg Tablet PO 0.5 mg BID PRN Administration Anxiety Methadone HCl 35 mg 07/01/21 09:00 07/01/21 08:42 Methadone Hcl 1 Mg/0.1 Ml Oral.Conc PO 35 mg DAILY KYLIE Administration Morphine Sulfate 4 mg 06/28/21 23:45 07/01/21 09:12 Morphine Sulfate 4 Mg/Ml Cartridge IVPUSH 4 mg Q4H PRN Administration Pain, Severe (Pain Scale 7-10) Nicotine Polacrilex 2 mg 06/30/21 08:55 06/30/21 15:34 Nicotine Polacrilex 2 Mg Gum BUCCAL 2 mg Q2H PRN Administration craving Ondansetron HCl 4 mg 06/28/21 22:06 Ondansetron Hcl 4 Mg/2 Ml Vial IVPUSH Q8H PRN Nausea and Vomiting Ondansetron HCl 4 mg 06/29/21 12:00 Ondansetron Hcl 4 Mg/2 Ml Vial IVPUSH ONCE PRN Nausea and Vomiting Oxycodone HCl 5 mg 06/29/21 12:00 Oxycodone Hcl Immed Release 5 Mg Tablet PO ONCE PRN Pain, Moderate (Pain Scale 4-6 Oxycodone HCl 10 mg 06/29/21 12:00 Oxycodone Hcl Immed Release 5 Mg Tablet PO ONCE PRN Pain, Severe (Pain Scale 7-10) Pharmacy Consult 1 each 06/28/21 22:06 Consult Rx Vancomycin Dosing MISCELLANE DAILY PRN Consult order Sodium Chloride 3 ml 06/29/21 00:00 07/01/21 09:13 0.9 % Sodium Chloride Flush 3 Ml Syringe IVFLUSH 3 ml QSHIFT KYLIE Administration Trazodone HCl 150 mg 06/28/21 22:06 06/30/21 20:56 Trazodone Hcl 50 Mg Tablet PO 150 mg BEDTIME KYLIE Administration <Lili Carpenter PA-C - Last Filed: 07/01/21 10:30> Time Spent With Patient Time: Total time spent is greater than 50% in coordination of care (as documented) at patient's floor/unit and/or counseling patient: <Lili Carpenter PA-C - Last Filed: 07/01/21 10:30> Time with patient: 15 - 24 minutes <Lili Carpenter PA-C - Last Filed: 07/01/21 10:30> Quality Stroke Does the patient have a stroke diagnosis?: No <NILESH Scott Last Filed: 07/01/21 10:30> VTE Prior VTE?: No <Lili Carpenter PA-C - Last Filed: 07/01/21 10:30> VTE Risk Level:: Medical - moderate - high <Lili Carpenter PA-C - Last Filed: 07/01/21 10:30> VTE Device Contraindication: Treatment Not Indicated <Lili Carpenter PA-C - Last Filed: 07/01/21 10:30> VTE Drug Contraindication: N/A - Med Ordered <Lili Carpenter PA-C - Last Filed: 07/01/21 10:30>
--- NOTE | 2021-07-01 10:34 | HO.ADDICTPRO ---
Subjective Subjective Date of Service: 07/01/21 Reason For Visit: cellulitis, seroma Interim History: Patient reporting positive effect from increase in methadone dose discharge planned for today met with [facility] yesterday. patient has decided to go home with her BF and continue outpatient treatment at [facility] Release signed and notes to be faxed over Review of Systems Review of Systems: denies any anxiety, nausea, lose stools, joint pain Mental Status Exam Mental Status Exam Patient Appearance: Well Grooomed and Appropriate Patient Orientation: Person, Place, Time and Situation Patient Behavior: Appropriate Mood Description: Appropriate Affect Description: Calm and Appropriate Speech Pattern: Clear Thought Process: Goal Oriented Thought Content: positive for Goal Oriented Judgement: Fair Diagnostics Vital Signs (24Hr): Vital Signs - 24 hr 06/30/21 11:31 06/30/21 15:11 06/30/21 15:58 Temperature 98.1 F 98.6 F Pulse Rate 74 97 98 Respiratory Rate 18 20 17 Blood Pressure 107/64 102/65 135/75 Pulse Oximetry 96 98 06/30/21 19:02 06/30/21 22:51 07/01/21 03:59 Temperature 97.1 F 97.7 F 96.9 F Pulse Rate 91 88 66 Respiratory Rate 20 18 16 Blood Pressure 104/65 107/60 94/53 L Pulse Oximetry 99 99 99 07/01/21 08:00 Temperature 96.9 F Pulse Rate 73 Respiratory Rate 18 Blood Pressure 97/60 Pulse Oximetry 100 Body Mass Index 22.8 Labs Results: 06/29/21 05:33 06/29/21 05:33 Labs: Laboratory Results - last 48 hr 06/30/21 05:53 Vancomycin Trough 5.3 L Imaging Radiology Impressions: ITS Impressions Femur CT 06/28/21 17:05 IMPRESSION: Large collection in the medial subcutaneous fat of the left distal thigh and knee with a thin rim of enhancement. The collection is very superficial at the site of the skin defect in the medial soft tissues. This is most consistent with a posttraumatic seroma or hematoma, though superimposed infection is also possible given the peripheral enhancement. Based on mechanism of injury, continued follow-up is advised as this may correspond to a closed degloving injury (Hartman Matheus lesion) that may not resolve spontaneously. Medications Medications Current Medications Generic Name Dose Route Start Last Admin Trade Name Freq PRN Reason Stop Dose Admin Acetaminophen 650 mg 06/28/21 22:06 06/30/21 22:07 Acetaminophen 325 Mg Tablet PO 650 mg Q6H PRN Administration Pain, Mild (Pain Scale 1-3) Amphetamine/Dextroamphetamine 30 mg 06/29/21 08:00 07/01/21 09:13 Amphetamine Mixed Salts 10 Mg Tablet PO 30 mg TIDWM KYLIE Administration Clonidine HCl 0.05 mg 06/28/21 22:06 06/29/21 06:28 Clonidine Hcl 0.1 Mg Tablet PO 0.05 mg TID PRN Administration withdrawal symptoms Protocol Docusate Sodium 100 mg 06/28/21 22:06 Docusate Sodium 100 Mg Capsule PO DAILY PRN Constipation Escitalopram Oxalate 10 mg 06/29/21 09:00 07/01/21 08:41 Escitalopram Oxalate 10 Mg Tablet PO 10 mg DAILY KYLIE Administration Fentanyl 25 mcg 06/29/21 12:00 Fentanyl Citrate/Pf 100 Mcg/2 Ml Vial IVPUSH Q5M PRN Pain, Moderate (Pain Scale 4-6 Fentanyl 50 mcg 06/29/21 12:00 Fentanyl Citrate/Pf 100 Mcg/2 Ml Vial IVPUSH Q5M PRN Pain, Severe (Pain Scale 7-10) Gabapentin 800 mg 06/28/21 22:06 07/01/21 08:41 Gabapentin 400 Mg Capsule PO 800 mg TID KYLIE Administration Heparin Sodium (Porcine) 5,000 unit 06/28/21 23:00 07/01/21 00:30 Heparin Sodium,Porcine 5,000 Unit/Ml Vial SUBCUT Not Given Q12H KYLIE Hydroxyzine HCl 25 mg 06/28/21 22:06 06/30/21 15:34 Hydroxyzine Hcl 25 Mg Tablet PO 25 mg Q6H PRN Administration anxiety Ceftriaxone Sodium 1 gm/ 50 mls @ 100 mls/hr 06/30/21 08:00 07/01/21 08:40 Sodium Chloride IV 100 mls/hr Q24H KYLIE Administration Ibuprofen 600 mg 06/30/21 10:04 06/30/21 22:07 Ibuprofen 600 Mg Tablet PO 600 mg Q8H PRN Administration Menstrual cramps Lorazepam 0.5 mg 06/30/21 12:44 07/01/21 09:13 Lorazepam 0.5 Mg Tablet PO 0.5 mg BID PRN Administration Anxiety Methadone HCl 35 mg 07/01/21 09:00 07/01/21 08:42 Methadone Hcl 1 Mg/0.1 Ml Oral.Conc PO 35 mg DAILY KYLIE Administration Morphine Sulfate 4 mg 06/28/21 23:45 07/01/21 09:12 Morphine Sulfate 4 Mg/Ml Cartridge IVPUSH 4 mg Q4H PRN Administration Pain, Severe (Pain Scale 7-10) Nicotine Polacrilex 2 mg 06/30/21 08:55 06/30/21 15:34 Nicotine Polacrilex 2 Mg Gum BUCCAL 2 mg Q2H PRN Administration craving Ondansetron HCl 4 mg 06/28/21 22:06 Ondansetron Hcl 4 Mg/2 Ml Vial IVPUSH Q8H PRN Nausea and Vomiting Ondansetron HCl 4 mg 06/29/21 12:00 Ondansetron Hcl 4 Mg/2 Ml Vial IVPUSH ONCE PRN Nausea and Vomiting Oxycodone HCl 5 mg 06/29/21 12:00 Oxycodone Hcl Immed Release 5 Mg Tablet PO ONCE PRN Pain, Moderate (Pain Scale 4-6 Oxycodone HCl 10 mg 06/29/21 12:00 Oxycodone Hcl Immed Release 5 Mg Tablet PO ONCE PRN Pain, Severe (Pain Scale 7-10) Pharmacy Consult 1 each 06/28/21 22:06 Consult Rx Vancomycin Dosing MISCELLANE DAILY PRN Consult order Sodium Chloride 3 ml 06/29/21 00:00 07/01/21 09:13 0.9 % Sodium Chloride Flush 3 Ml Syringe IVFLUSH 3 ml QSHIFT KYLIE Administration Trazodone HCl 150 mg 06/28/21 22:06 06/30/21 20:56 Trazodone Hcl 50 Mg Tablet PO 150 mg BEDTIME KYLIE Administration Allergies Allergies Allergy/AdvReac Type Severity Reaction Status Date / Time Penicillins [PENICILLINS] Allergy Intermediate UNKNOWN Verified 06/29/21 10:27 Sulfa (Sulfonamide Allergy Intermediate UNKNOWN Verified 06/29/21 10:27 Antibiotics) [SULFA (SULFONAMIDE ANTIBIOTICS)] Assessment & Plan Assessment & Plan (1) Opioid use disorder, severe, dependence: Status: Acute Code(s): F11.20 - Opioid dependence, uncomplicated Assessment and Plan: patient to follow up at [facility] OT last dose letter and notes to be faxed to clinic harm reduciton discussion take home narcan (2) Cocaine use disorder, severe, dependence: Status: Acute Code(s): F14.20 - Cocaine dependence, uncomplicated 25 mins with patient, discussing with hospitalist and coordinating care Greater than 50% of the session was spent on counseling and/or coordination of care
[2021-07-01 11:30] VITALS: BP 100/61; PULSE 94; RESP 18; TEMP 36; O2SAT 98
[2021-07-01] MEDS: Ibuprofen 600 MG TABLET PO (11:34)
--- NOTE | 2021-07-01 11:51 | MHC.CM.PN ---
HOME - SELF CARE. RN AWARE OF PLAN.
[2021-07-01 12:00] VITALS: O2SAT 98
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
[2021-07-01] MEDS: Nicotine Polacrilex 2 MG GUM BUCCAL (12:09)
== END 2021-07-01 14:00 | disposition home or self-care (01) | DRG 720 ==
LOC: HO.ED 18:39 → HO.EDOVER 22:17 → HO.S3 23:25
PROVIDERS: Physician Assistant Medical; Surgery; Admitting Provider Internal Medicine; Emergency Provider Internal Medicine; Visit Provider Internal Medicine
PROC: 0JBM0ZZ Excision of Left Upper Leg Subcutaneous Tissue and Fascia, Open Approach (ICD-10-PCS; principal; 2021-06-29 12:20)
DX: A41.9 Sepsis, unspecified organism (principal); F14.20 Cocaine dependence, uncomplicated; B19.20 Unspecified viral hepatitis C without hepatic coma; N39.0 Urinary tract infection, site not specified; F11.23 Opioid dependence with withdrawal; T79.2XXA Traumatic secondary and recurrent hemorrhage and seroma, initial encounter; B95.4 Other streptococcus as the cause of diseases classified elsewhere; F17.210 Nicotine dependence, cigarettes, uncomplicated; B96.20 Unspecified Escherichia coli [E. coli] as the cause of diseases classified elsewhere; L03.116 Cellulitis of left lower limb; Z20.822 Contact with and (suspected) exposure to COVID-19; Z71.6 Tobacco abuse counseling; Z88.0 Allergy status to penicillin; Z88.2 Allergy status to sulfonamides; Z79.899 Other long term (current) drug therapy
CPT/HCPCS: 36415; 73701; 80048; 80053; 80202; 81001; 81025; 83605; 83735; 83880; 85025; 85610; 87040; 87071; 87086; 87088; 87147; 87186; 87205; 87635; 88304; 93005; 99285; J0131; J0692; J0696; J2060; J2250; J2270; J2405; J2543; J3010; J3370; Q9967

== ENCOUNTER 2021-08-23 08:22 | Emergency (ER) | payer OTHER, SELFPAY ==
[2021-08-23 08:24] VITALS: BP 126/79; PULSE 106; RESP 19; TEMP 36.6; O2SAT 100; BMI 24.5
--- NOTE | 2021-08-23 08:45 | PC.NURSE ---
CALL TO PT AFTER 10 MINUTES IN WR. NO ANSWER
== END 2021-08-23 08:47 | disposition left against medical advice (07) ==
PROVIDERS: Emergency Provider Emergency Medicine; PCP Family Medicine
DX: F11.10 Opioid abuse, uncomplicated (principal)
CPT/HCPCS: 99282; 99283; 99291

== ENCOUNTER 2021-09-12 21:11 | Emergency (ER) | payer OTHER, SELFPAY ==
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
[2021-09-12 22:45] VITALS: BP 113/77; PULSE 99; RESP 16; TEMP 36.9; O2SAT 97; BMI 24.0
[2021-09-12 23:12] LABS: COVID-19 Test Negative (Negative)
== END 2021-09-13 00:34 | disposition left against medical advice (07) ==
PROVIDERS: Emergency Provider Emergency Medicine; PCP Family Medicine
DX: L02.91 Cutaneous abscess, unspecified (principal); Z20.822 Contact with and (suspected) exposure to COVID-19
CPT/HCPCS: 36415; 87635; 99282; 99283

== ENCOUNTER 2022-04-03 09:54 | Emergency (ER) | payer OTHER, SELFPAY ==
--- NOTE | ~2022-04-03 | CT_ITS ---
EXAMINATION: CT ANGIOGRAM OF THE CHEST WITH CONTRAST (CT PULMONARY ANGIOGRAM FOR PE) CLINICAL INFORMATION: Reason for Exam CP, SOB, elevated d-dimer COMPARISON: CXR from 04/03/2022 TECHNIQUE: Prior to contrast administration, noncontrast localization images were obtained. Subsequently, multidetector volumetric imaging was performed from the thoracic inlet to below the diaphragms following the administration of 65 mL Omnipaque 350 intravenous contrast. No contrast reaction reported. Sagittal, coronal, and MIP oblique sagittal reformatted images were obtained on the CT workstation, uploaded to PACS, and reviewed. This CT examination was performed using dose optimization techniques as appropriate, variously including the following: *Automated exposure control *Adjustment of mA and/or kV according to patient size (this includes techniques or standardized protocols for targeted exams where dose is matched to indication/reason for exam; i.e. extremities or head) *Use of iterative reconstruction technique DLP: Total exam dose-length product 204 mGy-cm FINDINGS: LUNGS AND PLEURA: Trachea and central airways are widely patent and normal caliber. The bronchial gavin are thickened, particularly in both lower lobes where there are scattered endobronchial secretions. These abnormalities could be secondary to active bronchitis or recent aspiration. No consolidation in either lower lobe. No pulmonary edema. Minimal patchy opacity in the left upper lobe is likely related to bronchiolitis. QUALITY OF STUDY/CONTRAST BOLUS: Satisfactory. CARDIOVASCULAR: The pulmonary arteries are normal in size. No embolic filling defects within the main, lobar or segmental vessels. The heart size is normal. No pericardial effusion. Thoracic aorta is normal. MEDIASTINUM/LOWER NECK: No mediastinal mass. The esophagus and thyroid gland are grossly unremarkable. LYMPHATICS: No pathologic sized axillary, hilar or mediastinal lymph nodes. UPPER ABDOMEN: No contrast reflux into the inferior vena cava. No acute findings in the visualized upper abdomen. OSSEOUS STRUCTURES: Thoracic vertebra have normal height and alignment. Again noted is a displaced fracture of the mid right clavicle. Acute, mildly displaced fracture of the anterior right third rib. CT/CT angio chest PE protocol IMPRESSION: * No evidence of pulmonary embolism. * Bronchial gavin are thickened in lower lobes and there are scattered endobronchial secretions. These findings could represent recent aspiration or active noninfectious or infectious bronchitis. * Again noted is the displaced fracture of the mid third of the right clavicle. Also, there is a mildly displaced fracture of the anterior right third rib.
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
[2022-04-03 10:22] VITALS: BP 114/68; PULSE 74; RESP 16; TEMP 36.8; O2SAT 96; BMI 22.9
[2022-04-03 11:10] LABS: MANUAL DIFF FLAG NO
[2022-04-03 11:24] LABS: Basophils Percent Auto 0.3 % (0-2); Eosinophils Absolute Auto 0.3 X10*3/uL (0.0-0.4); Eosinophils Percent Auto 3.3 % (0-4); Hematocrit 33.2 % (37.0-47.0); Hemoglobin 9.9 g/dl (12.0-16.0); Imm Gran Abs Auto 0.03 X10*3/uL (0.00-0.03); Imm Gran Pct Auto 0.3 % (0.0-0.4); Lymphocytes Absolute Auto 2.2 X10*3/uL (1.2-4.9); Lymphocytes Percent Auto 25.7 % (20-40); Mean Corpuscular HGB Conc 29.8 g/dl (31.0-35.0); Mean Corpuscular Hemoglobin 23.7 pg (27.0-33.0); Mean Corpuscular Volume 79.4 fL (80.0-98.0); Mean Platelet Volume 9.5 fL (9.4-12.3); Monocytes Absolute Auto 0.6 X10*3/uL (0.1-1.2); Monocytes Percent Auto 6.6 % (2-11); Neutrophils Absolute Auto 5.6 x10*3/uL (2.0-8.3); Neutrophils Percent Auto 63.8 % (45-73); Platelet Count 382 X10*3/uL (160-400); Red Blood Count 4.18 X10*6/uL (4.20-5.50); Red Cell Distribution Width 14.6 % (11.0-16.0); White Blood Count 8.7 X10*3/uL (4.8-10.8)
[2022-04-03 11:26] LABS: Appearance Urine HAZY; Color Urine YELLOW; Glucose Urine UA NEG (NEG); Leukocyte Esterase Urine 1+ (NEG); Nitrite Urine NEG (NEG); PH 5.5 (5.0-8.0); Specific Gravity - Urine >= 1.030 (1.005-1.025); UACC Culture Trigger YES; Urine Blood NEG (NEG); Urine Ketones 5 MG/DL (NEG); Urine Protein NEG (NEG-TRACE)
[2022-04-03 11:31] LABS: D Dimer High Sensitivity 2698 NG/ML; UPreg QC Valid YES; Urine Pregnancy NEGATIVE (NEGATIVE)
[2022-04-03 11:35] LABS: Calcium Oxalate Crystals Urine 4+ /LPF; Mucus Urine TRACE /LPF; RBC Urine 0 /HPF (0); Squamous Epithelial Cell Urine TRACE /LPF
[2022-04-03 11:41] LABS: COVID-19 Test Negative (Negative)
[2022-04-03 11:42] LABS: IDNOW Serial# 08D9AD1C; Influenza A Negative (Negative); Influenza B2 Negative (Negative)
[2022-04-03 11:45] LABS: Ethanol < 10 mg/dL
[2022-04-03 11:47] LABS: Anion Gap 13 (12-20); Blood Urea Nitrogen 19 mg/dL (9-16); Calcium 9.2 mg/dL (8.4-10.2); Carbon Dioxide 23 mmol/L (22-29); Chloride 107 mmol/L (96-108); Creatinine Clr Calc Pharmacy 81.5; Estimated Glomerular Filt Rate > 60; Glucose Random 93 mg/dL (60-115); Potassium 4.8 mmol/L (3.3-5.1); Sodium 138 mmol/L (135-145)
[2022-04-03 11:48] LABS: Amphetamine Screen Urine Not Detected (Not Detect); Barbiturates, Urine Not Detected (Not Detect); Benzodiazepines Screen Urine Not Detected (Not Detect); Cannabinoid Screen Urine Not Detected (Not Detect); Cocaine Screen Urine POSITIVE (Not Detect); Fentanyl, urine POSITIVE (Not Detect); Opiate Screen Urine Not Detected (Not Detect); Phencyclidine Screen Urine Not Detected (Not Detect)
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
[2022-04-03] MEDS: iohexoL 350 MG/ML 100 ML INFUS..BTL IV (13:46)
[2022-04-03 15:44] VITALS: BP 118/76; PULSE 83; RESP 6; TEMP 36.7; O2SAT 97
--- NOTE | 2022-04-03 15:59 | MHC.RECOVSUP ---
Addendum entered by Beau Little [facility] 04/03/22 16:48: Patient referred to [facility] and will follow up with them after discharge. Discussed case with patient's RN. Original Note: Recovery Support note: Patient is a 31 year old Hungarian speaking female who presented to [facility] due to feeling like she had the flu and interest in getting into detox. Patient reports using 4-5 bundles of heroin a day IV. Patient has been to detox before and reports she is willing to go anywhere. Patient was recently provided with a Suboxone prescription from a previous ED visit however she reports she did not take it due to difficulty waiting long enough to start the induction. Patient reports she has had success with methadone in the past. This writer producer will assist patient in referring to ATS facilities.
== END 2022-04-03 16:46 | disposition home or self-care (01) ==
PROVIDERS: Nurse Practitioner Family; Emergency Provider Emergency Medicine Emergency Medical Services; PCP Family Medicine
DX: J40 Bronchitis, not specified as acute or chronic (principal); F11.20 Opioid dependence, uncomplicated; F14.20 Cocaine dependence, uncomplicated; S22.31XA Fracture of one rib, right side, initial encounter for closed fracture; S42.001D Fracture of unspecified part of right clavicle, subsequent encounter for fracture with routine healing; R79.1 Abnormal coagulation profile; F17.210 Nicotine dependence, cigarettes, uncomplicated; Z20.822 Contact with and (suspected) exposure to COVID-19; Z88.0 Allergy status to penicillin; V89.2XXA Person injured in unspecified motor-vehicle accident, traffic, initial encounter; V89.2XXD Person injured in unspecified motor-vehicle accident, traffic, subsequent encounter; Y93.9 Activity, unspecified; Y92.410 Unspecified street and highway as the place of occurrence of the external cause; Y99.9 Unspecified external cause status
CPT/HCPCS: 36415; 71046; 71275; 80048; 80307; 81001; 81025; 82077; 85025; 85379; 87086; 87502; 87635; 93005; 99284; Q9967

== ENCOUNTER 2022-09-27 22:22 | Emergency (ER) | payer OTHER, SELFPAY ==
[2022-09-27 22:30] VITALS: BP 164/96; PULSE 130; RESP 20; TEMP 36.4; O2SAT 96; BMI 24.5
--- NOTE | 2022-09-27 23:26 | ED_ITS ---
HPI - Psych General Chief Complaint: Psychiatric Symptoms Stated Complaint: Crisis Time Seen by Provider: 09/27/22 22:46 Source: patient Mode of arrival: ambulatory Limitations: no limitations History of Present Illness HPI Narrative: This is a 32-year-old female history of hepatitis-C, IV drug abuse, anxiety, depression presenting to the emergency department with complaints of anxiety, depression and seeking to speak to the behavioral health team to obtain resources. Patient tells me that today she was discharged from [facility], she tells me she was hanging out with a friend he was not the best influence on patient, she tells me she did not feel comfortable when she was with this friend so she tried to come up with an excape plan which included her coming to the emergency department she tells me the reason she wanted to come in today is to seek help on her depression she tells me that she has been feeling increasingly depressed over the past few days secondary to increasing life stressors she tells me that back in June she was admitted in to [facility] for suicidal ideation, she tells me at that time she wanted to hang herself, she tells me this was a horrible time in her life and she never wants to see herself feeling like this again. She tells me she wanted to get resources before she started feeling the way she felt back in June. She tells me at this time she is not suicidal, denies homicidal ideation as well. She tells me that she just wanted to speak to somebody about resources. She also reports IV heroin use as well as marijuana use and she reports that she is trying to get a Section 35, reports she has had one of these in the past and it helped her. She tells me she wants guidance on how to do this. Tells me she has a good support system and a friend that is looking out for her who lives in [place]. Patient denies visual, auditory and tactile hallucinations. Denies medical complaints at this time. Related Data Home Medications Medication Instructions Recorded Confirmed dextroamphetamine-amphetamine 30 1 tab PO TID@08,12,15 06/28/21 06/29/21 mg tablet escitalopram oxalate 10 mg tablet 1 tab PO DAILY 06/28/21 06/28/21 gabapentin 800 mg tablet 1 tab PO TID 06/28/21 06/28/21 trazodone 150 mg tablet 1 tab PO BEDTIME 06/28/21 06/28/21 Previous Rx's Medication Instructions Recorded cefuroxime axetil 500 mg tablet 500 mg PO BID 7 days #40 tabs 07/01/21 oxycodone 5 mg tablet 5 mg PO Q6H PRN pain #10 tabs 07/01/21 doxycycline hyclate 100 mg tablet 100 mg PO BID 7 days #14 tabs 04/03/22 naproxen 500 mg tablet 500 mg PO BID PRN pain #14 tabs 04/03/22 Allergies Allergy/AdvReac Type Severity Reaction Status Date / Time Penicillins [PENICILLINS] Allergy Intermediate UNKNOWN Verified 09/27/22 22:36 Sulfa (Sulfonamide Allergy Intermediate UNKNOWN Verified 09/27/22 22:36 Antibiotics) [SULFA (SULFONAMIDE ANTIBIOTICS)] Review of Systems Review of Systems: Constitutional : No Weight loss, No Fever, No Chills, No Fatigue, No Malaise ENT/Mouth : No sore throat, No Rhinorrhea Eyes: No Eye Pain, No Swelling, No Redness Cardiovascular : No Chest Pain, No SOB, No Dyspnea on Exertion, No Orthopnea, No Edema, No Palpitations Respiratory : No Cough, No Sputum, No Wheezing Gastrointestinal : No Nausea, No Vomiting, No Diarrhea, No Constipation, No abdominal Pain, No Hematochezia, No Melena Genitourinary : No Dysuria, No Urinary Frequency, No Hematuria, Musculoskeletal : No joint pain, No Myalgias, No Joint Swelling Skin : No Skin Lesions, No rash Neuro : No Weakness, No Numbness, No Dizziness, No Headache Psych : + Anxiety/Panic, + Depression, No SI or HI All other systems reviewed and are negative Yes all other systems are reviewed and are negative [facility] Past Medical History Attestation statement: The following information was validated with the patient. Source: old records reviewed and nursing notes reviewed Medical History Cocaine use disorder, severe, dependence Hepatitis C IV drug abuse Opioid use disorder, severe, dependence Tobacco use disorder Social History Social History Household Members: Significant Other Housing: House Do you presently have visiting nurse or other home services: No Patient Tobacco Use Status: Current everyday Tobacco user Tobacco use type: Cigarette Years Smoked: 5 Second Hand Smoke Exposure: Yes Substance Use Type: Crack/Cocaine and Heroin Advance Directives: No Advance Directives Information Provided: No service: No Current occupational status: unemployed Physical Exam Vital Signs: Vital Signs: Last Vital Signs Temp 97.6 F 09/27/22 22:30 Pulse 130 H 09/27/22 22:30 Resp 20 09/27/22 22:30 BP 164/96 H 09/27/22 22:30 Pulse Ox 96 09/27/22 22:30 O2 Del Method 09/27/22 22:30 BMI result Body Mass Index 24.5 vss Tachycardic likely secondary to substance abuse Appearance: Alert.? Oriented X3.? No acute distress.? Head: Normocephalic, atraumatic, no step-offs or deformities Eyes: Pupils equal, round and reactive to light.? CVS: Normal heart rate and rhythm.? Pulses normal.? Respiratory: No respiratory distress.? Breath sounds normal.? Abdomen: Soft and nontender.? Skin: Skin warm and dry.? Normal skin color.? Normal skin turgor.? Extremities: No lower extremity edema.? No calf ttp. 5/5 strength to bilateral upper and lower extremities Neuro: Oriented X 3.? No motor deficit.? No sensory deficit. CN 2-12 intact Course Reevaluation(s) Reevaluation #1: Patient spoke to Dary from the care team, have other gave patient resources. Patient continues to decline laboratory studies. I re-evaluated patient again patient denying SI, HI. She tells me she thinks this was just all misunderstanding, she tells me she came here willingly to get some resources for her depression. Denies SI to the nurse in the pod as well, denying SI to the care team. Care team gave patient resources, patient not meeting inpatient criteria, at this time patient will be discharged home with a friend. At time of discharge patient common cooperative no acute distress. Advised her to follow-up with outpatient providers in the behavioral health team. Patient optimistic and happy to go home. Time: 23:29 MDM - Psych MDM Narrative Medical decision making narrative: 1127 32-year-old female presents with increasing depression, seeking resources for her depression and seeking guidance on how to get a Section 35. Denies SI and HI. Despite initial triage note patient states she never endorsed suicidal ideation she states she has been suicidal in the past however not today. Patient alert and oriented x4. Answering questions appropriately. Physical examination benign. Patient was noted to be initially tachycardic however on my exam patient is no tachycardic. Initially patient was likely tachycardic secondary to anxiety and/or polysubstance abuse. Patient denies medical complaints. Would not like any laboratory studies done, was just requesting to speak to the crisis team. Refusing laboratory studies. Medical Records Attestation: I reviewed the patient's medical records. Lab Data Attestation: I reviewed the patient's lab results. Critical Care Time Critical Care Time Critical Care Time: No Discharge Plan Discharge Clinical Impression: Depression, Acute anxiety Patient Disposition: Home, Self-Care Instructions: Depression (ED), Anxiety (ED) Additional Instructions: Take your medications as prescribed. If you were prescribed antibiotics today, it is important that you take your medication to their entirety, do not skip any doses, do not finish them early. Follow-up with your primary care provider this week. Return to the emergency department with new or worsening symptoms. Such as fevers, chills, chest pain, shortness of breath, nausea, vomiting, dizziness, headache, vision changes, lethargy, suicidal and homicidal ideation In case of emergency call 911 Prescriptions: No Action escitalopram oxalate 10 mg tablet 1 tab PO DAILY gabapentin 800 mg tablet 1 tab PO TID trazodone 150 mg tablet 1 tab PO BEDTIME dextroamphetamine-amphetamine 30 mg tablet 1 tab PO TID@08,12,15 cefuroxime axetil 500 mg tablet 500 mg PO BID 7 Days Qty: 40 0RF oxycodone 5 mg tablet 5 mg PO Q6H PRN (Reason: pain) Qty: 10 0RF doxycycline hyclate 100 mg tablet 100 mg PO BID 7 Days Qty: 14 0RF naproxen 500 mg tablet 500 mg PO BID PRN (Reason: pain) Qty: 14 0RF [facility]errals[facility]Provider Group[facility] - 1 day Stand Alone Forms: Work/School Release
--- NOTE | 2022-09-27 23:34 | MHC.CARE ---
CARE team met with pt at the request of the ED provider to conduct a risk assessment to determine whether the pt is safe for discharge. Pt is a 32 year old [place]ian speaking, female who self presented to the ED endorsing worsening depression and heroin use prior to arrival. The nursing triage note indicated that the pt had endorsed suicidal ideation with a plan to hang herself. When the pt was escorted into the pod and directed to change into hospital attire and told that she wouldn't be able to go outside to smoke, she stated that she wanted to leave the hospital and didn't want to stay. Pt denied having said that she was actively suicidal and refused to changeover. This auto service writer met with the pt in the milieu of the pod. Pt was alert and oriented, appeared younger than her stated age, presented with depressed mood and congruent affect, eye contact was appropriate, and speech was clear with even tone. There was no evidence of any psychosis or disturbances of thought. She denied SI/HI/AVH and reported that when she mentioned the suicidal ideation during the triage that she had been speaking about when she was last hospitalized at [facility] in July for SI with plan to hang herself, stating that she wanted to get help before she gets to that point again. Pt shared that she left [facility] prematurely today with the intention of self presenting to the [facility] methadone clinic in the morning to get restarted on maintenance there, where she had previously received MAT. Pt reported that she is considering going through another Section 35 to ensure that she follows through with recovery and get her back on track. She shared that she had been doing well in recovery for a few months until a friend of an overdose in June, at which time she started using opiates again and started struggling with her mental health. Pt reported that she knows what she needs to do but she has a difficult time keeping herself on track, but she's more motivated at this time and doesn't feel that she needs any further mental health intervention at this time. Pt was given information for [facility] mobile crisis, [facility], IOPs, and CSS/TSS programs. Pt plans to call her friend to come pick her back up from the hospital to stay with them for the night. ED provider updated re: risk assessment. Pt was discharged from ED without issue.
== END 2022-09-27 23:30 | disposition home or self-care (01) ==
PROVIDERS: Emergency Provider Internal Medicine
DX: F33.1 Major depressive disorder, recurrent, moderate (principal); F41.1 Generalized anxiety disorder; F43.0 Acute stress reaction; F17.210 Nicotine dependence, cigarettes, uncomplicated; Z71.6 Tobacco abuse counseling; Z79.899 Other long term (current) drug therapy
CPT/HCPCS: 99284

== ENCOUNTER 2022-11-15 17:51 | Emergency (ER) | payer OTHER, SELFPAY | END 2022-11-15 20:18 | disposition left against medical advice (07) | PROVIDERS: Emergency Provider Emergency Medicine | DX: F43.0 Acute stress reaction (principal) ==